=== PATIENT | male | born 1985 | race African-American/Black ===

== ENCOUNTER 2017-01-25 17:44 | Emergency (ER) | payer SELFPAY ==
[~2017-01-25] VITALS: Ht 185.4 cm; Wt 68.0 kg
[2017-01-25 18:11] VITALS: BP 112/67
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
[2017-01-25] MEDS ORDERED: HYDR-79 PO (18:37)
[2017-01-25] MEDS ORDERED: CYCL5TAB PO (18:37)
[2017-01-25] MEDS ORDERED: KETOROLAC 60 MG/2 ML VIAL. IM ONE (18:45)
== END 2017-01-25 18:51 | disposition home or self-care (01) ==
LOC: ER 17:44
DX: S39.012A Strain of muscle, fascia and tendon of lower back, initial encounter (principal); F17.200 Nicotine dependence, unspecified, uncomplicated; Z88.1 Allergy status to other antibiotic agents; V49.9XXA Car occupant (driver) (passenger) injured in unspecified traffic accident, initial encounter; Y93.89 Activity, other specified; Y99.8 Other external cause status; Y92.488 Other paved roadways as the place of occurrence of the external cause
CPT/HCPCS: 96372; 99283; J1885